=== PATIENT | male | born 1970 ===

== ENCOUNTER 2021-05-03 07:50 | Day surgery (SDC) | payer OTHER | END 2021-05-03 21:40 | disposition home or self-care (01) | LOC: CIR.AMB 07:50 | PROVIDERS: ATTEND Colon & Rectal Surgery | DX: A63.0 Anogenital (venereal) warts (principal); K64.1 Second degree hemorrhoids ==

== ENCOUNTER 2022-01-23 09:00 | Inpatient (IN) | payer OTHER ==
[2022-01-23] MEDS ORDERED: ZYRTEC10 M3 PO (10:37)
[2022-01-23] MEDS ORDERED: SINGULAIR10 MG PO (10:37)
[2022-01-26] MEDS ORDERED: CETIRIZINE HCL10 MG (08:05)
[2022-01-26] MEDS ORDERED: MONTELUKAST SOD10 MG (08:06)
[2022-01-26] MEDS ORDERED: LEVOCETIRIZINE D5 MG (08:06)
[2022-01-26] MEDS ORDERED: ALPRAZOLAM0.5 MG (08:06)
== END 2022-01-28 14:36 | disposition home or self-care (01) | DRG 708 ==
LOC: O/R 01-26 05:50 → SURH 01-26 05:50
PROVIDERS: ADMIT Urology; ATTEND Urology
PROC: 07TC0ZZ Resection of Pelvis Lymphatic, Open Approach (ICD-10-PCS; 2022-01-26)
PROC: 0VT00ZZ Resection of Prostate, Open Approach (ICD-10-PCS; principal; 2022-01-26 07:00)
DX: C61 Malignant neoplasm of prostate (principal); Z20.822 Contact with and (suspected) exposure to COVID-19